=== PATIENT | female | born 1990 | race Caucasian/White ===

== ENCOUNTER 2016-10-08 17:33 | Emergency (ER) | payer OTHER ==
--- NOTE | 2016-10-08 18:06 | Emergency Department Record ---
History of Present Illness - General Chief complaint: Abscess Stated complaint: INFECTED PIECING IN EAR Time Seen by Provider: 10/08/16 17:53 Source: Patient Mode of Arrival: Ambulatory Limitations: No limitations - History of Present Illness Initial comments: pt has an infected piercing of her l ear in the cartilage. she is diabetic and complaint: Abscess/boil Onset/Timin -: Days(s) Location: Head Severity scale (1-10): 7 Quality: Aching Consistency: Constant Improves with: None Worsens with: Palpation Context: None Associated symptoms: Denies other symptoms Treatments Prior to Arrival: None - Related Data Home Medications Medication Instructions Recorded Confirmed Last Taken Insulin Detemir [Levemir] 10 units SQ QHS 10/08/16 10/08/16 10/07/16 Pnv No.95/Ferrous Fum/Folic AC 1 tab PO DAILY 10/08/16 10/08/16 10/08/16 [ Multivitamin Tablet] Previous Rx's Medication Instructions Recorded Cephalexin [Keflex] 500 mg PO QID #30 cap 10/08/16 Allergies Allergy/AdvReac Type Severity Reaction Status Date / Time topiramate [From Topamax] Allergy HIVES Verified 10/08/16 17:38 Penicillins AdvReac RASH Verified 06/11/14 14:37 Travel Screening - Travel/Exposure Within Last 30 Days Have you traveled within the last 30 days?: No - Travel/Exposure Within Last Year Have you traveled outside the [place] in the last year?: No - Additonal Travel Details Have you been exposed to anyone with a communicable illness?: No - Travel Symptoms Symptom Screening: None Review of Systems Reviewed: No additional complaints except as noted below Constitutional: Reports: As per HPI. Denies: Chills, Fever, Malaise, Night sweats, Weakness, Weight change Eyes: Reports: As per HPI. Denies: Eye discharge, Eye pain, Photophobia, Vision change ENT: Reports: As per HPI. Denies: Congestion, Dental pain, Ear pain, Epistaxis , Hearing loss, Throat pain Respiratory: Reports: As per HPI. Denies: Cough, Dyspnea, Hemoptysis, Stridor, Wheezes Cardiovascular: Reports: As per HPI. Denies: Arrhythmia, Chest pain, Dyspnea on exertion, Edema, Murmurs, Orthopnea, Palpitations, Paroxysmal nocturnal dyspnea, Rheumatic Fever, Syncope Endocrine: Reports: As per HPI. Denies: Fatigue, Heat or cold intolerance, Polydipsia, Polyuria Gastrointestinal: Reports: As per HPI. Denies: Abdominal pain, Constipation, Diarrhea, Hematemesis, Hematochezia, Melena, Nausea, Vomiting Genitourinary: Reports: As per HPI. Denies: Abnormal menses, Discharge, Dyspareunia, Dysuria, Frequency, Hematuria, Incontinence, Retention, Urgency Musculoskeletal: Reports: As per HPI. Denies: Arthralgia, Back pain, Gout, Joint swelling, Myalgia, Neck pain Skin: Reports: As per HPI. Denies: Bruising, Change in color, Change in hair/ nails, Lesions, Pruritus, Rash Neurological: Reports: As per HPI. Denies: Abnormal gait, Confusion, Headache, Numbness, Paresthesias, Seizure, Tingling, Tremors, Vertigo, Weakness Psychiatric: Reports: As per HPI. Denies: Anxiety, Auditory hallucinations, Depression, Homicidal thoughts, Suicidal thoughts, Visual hallucinations Hematological/Lymphatic: Reports: As per HPI. Denies: Anemia, Blood Clots, Easy bleeding, Easy bruising, Swollen glands Past Medical History - SOCIAL HISTORY Smoking Status: Former smoker Alcohol Use: None Drug Use Detail:: Cocaine - RESPIRATORY Hx Respiratory Disorders: No - CARDIOVASCULAR Hx Cardio Disorders: No - NEURO Hx Neuro Disorders: Yes Hx Headaches: Yes - GI Hx GI Disorders: No - Hx Genitourinary Disorders: No - ENDOCRINE Hx Diabetes: Yes Hx Thyroid Disease: No - MUSCULOSKELETAL Hx Musculoskeletal Disorders: No - PSYCH Hx Psych Problems: Yes Hx Anxiety: Yes Hx Depression: Yes - HEMATOLOGY/ONCOLOGY Hx Hematology/Oncology Disorders: No Family Medical History Any Significant Family History?: Yes Hx Cancer: Grandparents Hx Diabetes: Grandparents Hx Heart Disease: Grandparents Hx Stroke: Grandparents Physical Exam - General General Appearance: Alert, Oriented x3, Cooperative, Mild distress - Head Head exam: Normal inspection - Eye Eye exam: Normal appearance, PERRL, EOMI Pupils: Normal accommodation - ENT ENT exam: Normal exam, Mucous membranes moist, Normal external ear exam, Normal orophraynx Ear exam: External canal tenderness, Other (mild infected piercing of cartilage) Nasal Exam: Normal inspection. negative: Discharge, Sinus tenderness Mouth exam: Normal external inspection, Tongue normal Teeth exam: Normal inspection. negative: Dental caries Throat exam: Normal inspection. negative: Tonsillar erythema, Tonsillar exudate - Neck Neck exam: Normal inspection, Full ROM. negative: Tenderness - Respiratory Respiratory exam: Normal lung sounds bilaterally. negative: Respiratory distress - Cardiovascular Cardiovascular Exam: Regular rate, Normal rhythm, Normal heart sounds - GI/Abdominal GI/Abdominal exam: Soft, Normal bowel sounds. negative: Tenderness - Rectal Rectal exam: Deferred - exam: Deferred - Extremities Extremities exam: Normal inspection, Full ROM, Normal capillary refill. negative: Tenderness - Back Back exam: Reports: Normal inspection, Full ROM. Denies: Muscle spasm, Rash noted, Tenderness - Neurological Neurological exam: Alert, CN II-XII intact, Normal gait, Oriented X3 - Psychiatric Psychiatric exam: Normal affect, Normal mood - Skin Skin exam: Dry, Intact, Normal color, Warm Course Vital Signs 10/08/16 17:40 Temperature 98.6 F Pulse Rate 93 H Respiratory 20 Rate Blood Pressure 115/73 Pulse Ox 98 Disposition Disposition: Discharge Clinical Impression: Infected pierced ear Qualifiers: Encounter type: initial encounter Laterality: left Qualified Code(s): S01.332A - Puncture wound without foreign body of left ear, initial encounter Disposition: Home, Self-Care Condition: (1) Good Instructions: Wound Infection (ED) Additional Instructions: follow up with family doctor. return sooner if worse. moist heat 4 times a day Prescriptions: Cephalexin [Keflex] 500 mg PO QID #30 cap Forms: Patient Portal Access Quality - Quality Measures Quality Measures: N/A - Blood Pressure Screening Blood Pressure Classification: Normal BP Reading Systolic Measurement: 115 Diastolic Measurement: 73 Screening for High Blood Pressure: < Normal BP, F/U Not Required > [G8783] Normal BP Follow-up Interventions: No follow-up required
== END 2016-10-08 18:20 | disposition home or self-care (01) ==
LOC: ER 17:33
DX: S00.402A Unspecified superficial injury of left ear, initial encounter (principal); L08.9 Local infection of the skin and subcutaneous tissue, unspecified
CPT/HCPCS: 99282

== ENCOUNTER 2017-04-23 18:24 | Emergency (ER) | payer OTHER, MEDICAID ==
--- NOTE | 2017-04-23 19:30 | Emergency Department Record ---
History of Present Illness - General Chief Complaint: General Stated Complaint: THRUSH ON BREAST Time Seen by Provider: 04/23/17 19:26 Source: Patient Mode of Arrival: Ambulatory Limitations: No limitations - History of Present Illness Initial comments: The patient has been breast feeding her 16 day old baby and he has developed thrush. Now she is having some burning of her nipples and is concerned she may have thrush also. She denies any swelling, redness or pain. Onset/Timin -: Days(s) - [place] Coma Scale Eye Response: (4) Open spontaneously Motor Response: (6) Obeys commands Verbal Response: (5) Oriented Waqar Total: 15 - Related Data Previous Rx's Medication Instructions Recorded Cephalexin [Keflex] 500 mg PO QID #30 cap 10/08/16 Allergies Allergy/AdvReac Type Severity Reaction Status Date / Time topiramate [From Topamax] Allergy HIVES Verified 10/08/16 17:38 Penicillins AdvReac RASH Verified 06/11/14 14:37 Travel Screening - Travel/Exposure Within Last 30 Days Have you traveled within the last 30 days?: No - Travel/Exposure Within Last Year Have you traveled outside the [place] in the last year?: No - Additonal Travel Details Have you been exposed to anyone with a communicable illness?: No - Travel Symptoms Symptom Screening: None Review of Systems Constitutional: Denies: Chills, Fever Eyes: Denies: Eye discharge ENT: Denies: Congestion Respiratory: Denies: Cough, Dyspnea Past Medical History - SOCIAL HISTORY Smoking Status: Former smoker Alcohol Use: None Drug Use: None - RESPIRATORY Hx Respiratory Disorders: No - CARDIOVASCULAR Hx Cardio Disorders: No - NEURO Hx Neuro Disorders: Yes Hx Headaches: Yes - GI Hx GI Disorders: No - Hx Genitourinary Disorders: No - ENDOCRINE Hx Diabetes: Yes Hx Thyroid Disease: No - MUSCULOSKELETAL Hx Musculoskeletal Disorders: No - PSYCH Hx Psych Problems: Yes Hx Anxiety: Yes Hx Depression: Yes - HEMATOLOGY/ONCOLOGY Hx Hematology/Oncology Disorders: No Family Medical History Any Significant Family History?: No Hx Cancer: Grandparents Hx Diabetes: Grandparents Hx Heart Disease: Grandparents Hx Stroke: Grandparents Physical Exam - General General Appearance: Alert, Cooperative, No acute distress - Head Head exam: Atraumatic, Normocephalic - Eye Eye exam: Normal appearance, PERRL - Neck Neck exam: Normal inspection - Skin Skin exam: Normal color (The breast and nipples were examined and appear very normal. There is no tenderness, swelling, or erythema. There are no signs of any fungal infection.) Course Vital Signs 04/23/17 19:14 Temperature 98.6 F Pulse Rate 85 Respiratory 18 Rate Blood Pressure 123/84 Pulse Ox 96 - Reevaluation(s) Reevaluation #1: I explained to Mom that she is to wash her nipples very well and we will treat her baby with nystatin. She is to return for any problems. 04/23/17 19:29 Disposition Disposition: Discharge Clinical Impression: Breast pain in female Disposition: Home, Self-Care Condition: (1) Good Instructions: and Nipple Soreness (ED) Additional Instructions: Please wash the nipples as directed and see your PCP next week if not better. Forms: Patient Portal Access Time of Disposition: 19:30 Quality - Quality Measures Quality Measures: N/A - Blood Pressure Screening View Details: Yes Does Patient Have Any of the Following: No Blood Pressure Classification: Pre-Hypertensive BP Reading Systolic Measurement: 123 Diastolic Measurement: 84 Screening for High Blood Pressure: < Pre-Hypertensive BP, F/U Documented > [ G8950] Pre-Hypertensive Follow-up Interventions: Referral to alternative/primary care provider.
== END 2017-04-23 19:45 | disposition home or self-care (01) ==
LOC: ER 18:24
DX: O92.29 Other disorders of breast associated with pregnancy and the puerperium (principal)
CPT/HCPCS: 99282

== ENCOUNTER 2017-07-19 02:35 | Day surgery (SDC) | payer MEDICAID, OTHER ==
[2017-07-19] MEDS ORDERED: FAMOTIDINE 20MG TABLET PO ONE (02:36)
[2017-07-19] MEDS ORDERED: METOCLOPRAMIDE 10 MG TABLET PO ONE (02:36)
[2017-07-19] MEDS ORDERED: MECLIZINE 25 MG TABLET PO ONE (02:36)
[2017-07-19] MEDS ORDERED: ACETAMINOPHEN 1,000 MG/100 ML BTL IV ONE (02:36)
[2017-07-19] MEDS ORDERED: HYDROMORPHONE HCL 2 MG/ML VIAL IVP ONE (02:45)
[2017-07-19] MEDS ORDERED: ONDANSETRON HCL IV 4 MG/2 ML VIAL IV ONE (02:45)
[2017-07-19] MEDS ORDERED: SODIUM CHLORIDE 0.9% 500 ML IV ONE (02:45)
--- NOTE | 2017-07-19 02:49 | Emergency Department Record ---
History of Present Illness - General Chief Complaint: Abdominal Pain Stated Complaint: ABDOMINAL PAIN Time Seen by Provider: 07/19/17 02:41 Source: Patient Mode of Arrival: Ambulatory Limitations: No limitations - History of Present Illness Initial Comments: The patient is here due to epigastric AP for the last 2.5 hours. The pain is sharp and stabbing and is associated with nausea and vomiting. The patient denies any diarrhea, fever, chills, or back pain. She has had similar pain recently off and on but it has resolved. This episode seems worse. The patient did have a baby 3 months ago and denies any hx of any abdominal surgeries. MD Complaint: Abdominal pain Onset/Timin -: Hour(s) Location: Epigastric Radiation: None, Back Severity scale (1-10): 8 Consistency: Constant Improves With: Nothing Worsens With: Nothing Associated Symptoms: Vomiting - Related Data LMP Date: 06/20/16 Allergies Allergy/AdvReac Type Severity Reaction Status Date / Time topiramate [From Topamax] Allergy HIVES Verified 10/08/16 17:38 Penicillins AdvReac RASH Verified 06/11/14 14:37 Travel Screening - Travel/Exposure Within Last 30 Days Have you traveled within the last 30 days?: No - Travel/Exposure Within Last Year Have you traveled outside the [place] in the last year?: No - Additonal Travel Details Have you been exposed to anyone with a communicable illness?: No Review of Systems Constitutional: Denies: Chills, Fever Eyes: Denies: Eye discharge ENT: Denies: Congestion Respiratory: Denies: Cough, Dyspnea Past Medical History - SOCIAL HISTORY Smoking Status: Former smoker Alcohol Use: None Drug Use: None - RESPIRATORY Hx Respiratory Disorders: No - CARDIOVASCULAR Hx Cardio Disorders: No - NEURO Hx Neuro Disorders: Yes Hx Headaches: Yes - GI Hx GI Disorders: No - Hx Genitourinary Disorders: No - ENDOCRINE Hx Diabetes: Yes Hx Thyroid Disease: No - MUSCULOSKELETAL Hx Musculoskeletal Disorders: No - PSYCH Hx Psych Problems: Yes Hx Anxiety: Yes Hx Depression: Yes - HEMATOLOGY/ONCOLOGY Hx Hematology/Oncology Disorders: No Family Medical History Any Significant Family History?: No Hx Cancer: Grandparents Hx Diabetes: Grandparents Hx Heart Disease: Grandparents Hx Stroke: Grandparents Physical Exam - General General Appearance: Alert, Oriented x3, Cooperative, No acute distress - Head Head exam: Atraumatic, Normocephalic, Normal inspection - Eye Eye exam: Normal appearance, PERRL - Neck Neck exam: Normal inspection, Full ROM. negative: Tenderness - Respiratory Respiratory exam: Normal lung sounds bilaterally. negative: Respiratory distress - Cardiovascular Cardiovascular Exam: Regular rate, Normal rhythm, Normal heart sounds - GI/Abdominal GI/Abdominal exam: Soft, Tenderness (There is mild to moderate epigastric > RUQ tenderness.). negative: Guarding, Rebound, Rigid - Extremities Extremities exam: Normal inspection, Full ROM, Normal capillary refill. negative: Tenderness Course Vital Signs 07/19/17 02:36 Temperature 98.8 F Pulse Rate 89 Respiratory 20 Rate Blood Pressure 133/85 Pulse Ox 99 - Reevaluation(s) Reevaluation #1: The patient is doing better at this time. Her pain has resolved 100%. I did discuss the need for an US due to the fact I believe the pain is most likely from her GB. The patient is willing to stay in the ED until 7am for the US. 07/19/17 03:26 Reevaluation #2: The patient is doing much better at this time. She presently was sleeping when I rechecked her. She states the pain is gone but there is mild epigastric tenderness. The abdomen is very soft at this time. 07/19/17 04:15 Reevaluation #3: The patient is resting comfortably and is presently sleeping. We are waiting on the US. The patient's care will be turned over to Dr. Key at 7am due to shift change. 07/19/17 06:39 Medical Decision Making - Data Complexity MDM Data: Labs Ordered and/or Reviewed - Lab Data Result diagrams: 07/19/17 02:45 07/19/17 02:45 Disposition Forms: Patient Portal Access Quality - Quality Measures Quality Measures: N/A - Blood Pressure Screening View Details: Yes Does Patient Have Any of the Following: No Blood Pressure Classification: Pre-Hypertensive BP Reading Systolic Measurement: 133 Diastolic Measurement: 85 Screening for High Blood Pressure: < Pre-Hypertensive BP, F/U Documented > [ G8950] Pre-Hypertensive Follow-up Interventions: Referral to alternative/primary care provider.
[2017-07-19 02:53] LABS: BASO % 0.5 % (0-6); EOS % 1.6 % (0-6); GRAN % 60.4 % (47-80); HEMOGLOBIN 13.6 gm/dl (11.6-16.0); LYMPH % 28.3 % (16-45); MEAN CORPUSCULAR HEMOGLOBIN 28.5 pg (27-33); MEAN CORPUSCULAR HGB CONC 33.2 g/dl (32-36); MEAN PLATELET VOLUME 10.3 fl (7.4-10.4); MONO % 9.2 % (0-9); PLATELET COUNT 204 K/uL (130-400); RED BLOOD COUNT 4.77 M/uL (3.80-5.40); RED CELL DISTRIBUTION WIDTH 12.7 % (11.5-14.5); WHITE BLOOD COUNT W/O DIFF 7.7 K/uL (4.2-12.2)
[2017-07-19 02:56] LABS: URINE APPEARANCE CLEAR; URINE BILIRUBIN NEGATIVE (NEGATIVE); URINE BLOOD SMALL (NEGATIVE); URINE COLOR YELLOW; URINE GLUCOSE (UA) NEGATIVE (NEGATIVE); URINE KETONE NEGATIVE (NEGATIVE); URINE LEUKOCYTE ESTERASE NEGATIVE (NEGATIVE); URINE NITRITE NEGATIVE (NEGATIVE); URINE PROTEIN NEGATIVE (NEGATIVE); URINE UROBILINOGEN 0.2 E.U./dL (0.20 - 1.00)
[2017-07-19 02:58] LABS: HCG,QUALITATIVE URINE NEGATIVE (NEGATIVE); URINE BACTERIA NONE SEEN; URINE EPITHELIAL CELLS 0 - 2 (FEW); URINE RBC 0 - 2 (NONE SEEN); URINE WBC 0 - 2 (0-2/hpf)
[2017-07-19 03:11] LABS: BLOOD UREA NITROGEN 17 mg/dL (6-20); CREATININE 0.7 mg/dL (0.5-0.9); EST GLOMERULAR FILTRATION RATE > 60 mL/min
[2017-07-19 03:14] LABS: GLUCOSE,RANDOM 141 mg/dL (74-109)
[2017-07-19 03:16] LABS: ALBUMIN 3.7 g/dL (4.0-5.0); ALKALINE PHOSPHATASE 83 U/L (35-104); ALT/SGPT 20 U/L (<33); AST/SGOT 18 U/L (10.0-35.0)
[2017-07-19 03:17] LABS: BILIRUBIN,DIRECT < 0.2 mg/dL (0-0.3); LIPASE 40 U/L (13-60)
[2017-07-19] MEDS ORDERED: 0.9 % SODIUM CHLORIDE 1000ML 1,000 ML IV ONE (08:14)
--- NOTE | 2017-07-19 08:20 | Emergency Department Record ---
History of Present Illness - General Chief Complaint: Abdominal Pain Stated Complaint: ABDOMINAL PAIN Time Seen by Provider: 07/19/17 02:41 Source: Patient Mode of Arrival: Ambulatory Limitations: No limitations - History of Present Illness MD Complaint: Abdominal pain Onset/Timin -: Hour(s) Location: Epigastric Radiation: None, Back Severity scale (1-10): 8 Consistency: Constant Improves With: Nothing Worsens With: Nothing Associated Symptoms: Vomiting - Related Data LMP Date: 06/20/16 Patient : No Allergies Allergy/AdvReac Type Severity Reaction Status Date / Time topiramate [From Topamax] Allergy HIVES Verified 10/08/16 17:38 Penicillins AdvReac RASH Verified 06/11/14 14:37 Travel Screening - Travel/Exposure Within Last 30 Days Have you traveled within the last 30 days?: No - Travel/Exposure Within Last Year Have you traveled outside the [place] in the last year?: No - Additonal Travel Details Have you been exposed to anyone with a communicable illness?: No Review of Systems Constitutional: Denies: Chills, Fever Eyes: Denies: Eye discharge ENT: Denies: Congestion Respiratory: Denies: Cough, Dyspnea Past Medical History - SOCIAL HISTORY Smoking Status: Former smoker Alcohol Use: None Drug Use: None - RESPIRATORY Hx Respiratory Disorders: No - CARDIOVASCULAR Hx Cardio Disorders: No - NEURO Hx Neuro Disorders: Yes Hx Headaches: Yes - GI Hx GI Disorders: No - Hx Genitourinary Disorders: No - ENDOCRINE Hx Diabetes: Yes Hx Thyroid Disease: No - MUSCULOSKELETAL Hx Musculoskeletal Disorders: No - PSYCH Hx Psych Problems: Yes Hx Anxiety: Yes Hx Depression: Yes - HEMATOLOGY/ONCOLOGY Hx Hematology/Oncology Disorders: No Family Medical History Any Significant Family History?: No Hx Cancer: Grandparents Hx Diabetes: Grandparents Hx Heart Disease: Grandparents Hx Stroke: Grandparents Physical Exam - General Limitations: No limitations Course Vital Signs 07/19/17 07/19/17 07/19/17 02:36 03:16 07:57 Temperature 98.8 F 97.8 F Pulse Rate 89 Pulse Rate [ 83 69 Pulse Ox Probe] Respiratory 20 20 18 Rate Blood Pressure 133/85 Blood Pressure 146/90 [Left Arm] Blood Pressure 124/92 [Right Arm] Pulse Ox 99 97 98 - Reevaluation(s) Reevaluation #1: The case was turned over by Dr Padilla 07/19/17 07:00 The US was reviewed The patient has multiple mobile stones. No wall thickening or pericholecystic fluid. 07/19/17 08:10 07/19/17 08:34 I JONH Perkins The patient still has pain and prefers to have the GB out if possible given repeated episodes of pain The patient will have outpatient surgery today Medical Decision Making - Lab Data Result diagrams: 07/19/17 02:45 07/19/17 02:45 Lab Results 07/19/17 07/19/17 07/19/17 Range/Units 02:45 02:45 02:57 WBC 7.7 (4.2-12.2) K/uL RBC 4.77 (3.80-5.40) M/uL Hgb 13.6 (11.6-16.0) gm/dl Hct 41.0 (35.0-47.0) % MCV 86.0 (81-97) fl MCH 28.5 (27-33) pg MCHC 33.2 (32-36) g/dl RDW 12.7 (11.5-14.5) % Plt Count 204 (130-400) K/uL MPV 10.3 (7.4-10.4) fl Gran % 60.4 (47-80) % Lymphocytes % 28.3 (16-45) % Monocytes % 9.2 H (0-9) % Eosinophils % 1.6 (0-6) % Basophils % 0.5 (0-6) % Sodium 136 (136-145) mmol/L Potassium 4.0 (3.4-4.5) mmol/L Chloride 100 (98-107) mmol/L Carbon Dioxide 28.0 (22-29) mmol/L Anion Gap 8.0 (7-16) BUN 17 (6-20) mg/dL Creatinine 0.7 (0.5-0.9) mg/dL Estimated GFR > 60 mL/min Random Glucose 141 H (74-109) mg/dL Calcium 9.2 (8.6-10.0) mg/dL Total Bilirubin 0.50 (0.2-1.0) mg/dL Direct Bilirubin < 0.2 (0-0.3) mg/dL AST 18 (10.0-35.0) U/L ALT 20 (<33) U/L Alkaline Phosphatase 83 (35-104) U/L Total Protein 7.0 (6.6-8.7) g/dL Albumin 3.7 L (4.0-5.0) g/dL Lipase 40 (13-60) U/L Urine Color Yellow Urine Appearance Clear Urine pH 7.0 (5.0-8.0) Ur Specific Erhard 1.015 (1.002-1.030) Urine Protein Negative (NEGATIVE) Urine Glucose (UA) Negative (NEGATIVE) Urine Ketones Negative (NEGATIVE) Urine Blood Small H (NEGATIVE) Urine Nitrite Negative (NEGATIVE) Urine Bilirubin Negative (NEGATIVE) Urine Urobilinogen 0.2 (0.20 - 1.00) E.U./dL Ur Leukocyte Esterase Negative (NEGATIVE) Urine RBC 0 - 2 (NONE SEEN) Urine WBC 0 - 2 (0-2/hpf) Ur Epithelial Cells 0 - 2 (FEW) Urine Bacteria None seen Urine HCG, Qual Negative (NEGATIVE) Disposition Disposition: Discharge Clinical Impression: Biliary colic Disposition: Home, Self-Care Condition: (2) Stable Additional Instructions: Discharged to outpatient surgery Forms: Patient Portal Access Time of Disposition: 08:36 Quality - Quality Measures Quality Measures: N/A - Blood Pressure Screening Does Patient Have Any of the Following: No Blood Pressure Classification: Pre-Hypertensive BP Reading Systolic Measurement: 133 Diastolic Measurement: 85 Screening for High Blood Pressure: < Pre-Hypertensive BP, F/U Documented > [ G8950] Pre-Hypertensive Follow-up Interventions: Referral to alternative/primary care provider.
[2017-07-19] MEDS ORDERED: ONDANSETRON HCL IV 4 MG/2 ML VIAL IVP ONE (13:50)
[2017-07-19] MEDS ORDERED: LIDOCAINE 2% MDV (20MG/ML) 20ML VIAL IV ONE (13:50)
[2017-07-19] MEDS ORDERED: PROPOFOL 10 MG/ML VIAL IV ONE (13:50)
[2017-07-19] MEDS ORDERED: HYDROMORPHONE HCL 2 MG/ML VIAL IV ONE ×2 (13:50)
[2017-07-19] MEDS ORDERED: SEVOFLURANE 250 ML INH ONE (13:50)
[2017-07-19] MEDS ORDERED: METOCLOPRAMIDE HCL 10 MG/2 ML VIAL IVP ONE (13:50)
[2017-07-19] MEDS ORDERED: FENTANYL PF 100MCG/2ML VIAL IV ONE (13:50)
[2017-07-19] MEDS ORDERED: SUCCINYLCHOLINE 20 MG/ML 10ML IVP ONE (13:50)
[2017-07-19] MEDS ORDERED: MIDAZOLAM HCL 2MG/2ML VIAL IV ONE (13:50)
[2017-07-19] MEDS ORDERED: BUPIVACAINE 0.25% W/EPI MPF 30ML VIAL IVP ONE (13:50)
[2017-07-19] MEDS ORDERED: ROCURONIUM BROMIDE 50MG/5ML VIAL IV ONE (13:50)
--- NOTE | 2017-07-19 16:04 | ULTRASOUND REPORT ---
EXAM: ULTRASOUND ABDOMEN, COMPLETE HISTORY: MID ABDOMINAL PAIN. TECHNIQUE: Complete transabdominal ultrasound. COMPARISON: None. FINDINGS: Echogenic appearance to the liver consistent with fatty infiltrative change. No focal liver lesions. Multiple mobile, shadowing stones in the gallbladder lumen. No gallbladder wall thickening or pericholecystic fluid. The CBD measures 1.8 mm. The visualized portions of the pancreas are unremarkable. The spleen is unremarkable at 12 cm. The right kidney measures 11 x 4 cm, the left 12 x 6 cm. No renal calculus, mass, or hydronephrosis. Visualized portions of the abdominal aorta and inferior vena cava are unremarkable. No free fluid. Negative sonographic Lilly sign. IMPRESSION: FATTY INFILTRATIVE CHANGE TO THE LIVER. CHOLELITHIASIS. NO SONOGRAPHIC EVIDENCE FOR CHOLECYSTITIS. JOB NUMBER: [id number] [facility]
--- NOTE | 2017-07-20 10:10 | Operative Note ---
DATE OF SURGERY: 07/19/2017 Surgeon: Xander Perkins DO PREOPERATIVE DIAGNOSIS: Acute cholecystitis. POSTOPERATIVE DIAGNOSIS: Acute cholecystitis. OPERATION: Laparoscopic cholecystectomy. Indication: The patient is a 27-year-old female who has had ongoing right subcostal postprandial pain. Imaging studies did reveal cholelithiasis. We did discuss cholecystectomy versus medical management. She desired surgical intervention. Risks include but are not limited to bleeding, infection, acute or chronic pain, bile duct injury, bile leak. She understood this fully. The patient is morbidly obese at 330 pounds. Therefore, this did add some technical issues to it, which we discussed as well. Thereafter, consent was signed and questions answered. PROCEDURE: She was taken to the operating room and placed in a supine position. General anesthesia was administered per the department of anesthesia. The patient's abdomen was prepped and draped in the usual sterile fashion. At this time, adequate timeout was performed. She did receive preoperative antibiotic as well as DVT prophylaxis. The supraumbilical region was anesthetized with a total of 4 mL of 0.25% Sensorcaine with epinephrine. A 2.5 cm supraumbilical incision was made. This was carried down to the anterior rectus fascia. This was incised. Nithya clamps were placed on the fascial edges and brought up into the wound. Stay sutures of 0 Vicryl were placed. Posterior rectus sheath was identified and incised. The peritoneal cavity was entered bluntly. At this time, a bariatric balloon Lilibeth port was then placed. Adequate pneumoperitoneum was established. Under direct visualization, additional 5 mm epigastric and two 5 mm right subcostal ports were placed. The patient was rotated into reverse Trendelenburg, rotation to left. The gallbladder was identified and noted to be very edematous and inflamed. This was lifted in cephalad and lateral direction over the angle of Calot. The hepatocystic triangle was thoroughly dissected out. There was no aberrant anatomy, no posterior ductal structures. The cystic duct and cystic artery were clearly identified. Each one was dissected out. Each one was doubly clipped and cut in a standard fashion. Gallbladder was then peeled off the liver bed mainly with blunt dissection. This was placed in an EndoCatch bag and brought out the umbilical port. Right upper quadrant was rechecked and found to be hemostatic. No bleeding. No bile leak. No bowel injury noted. The patient was leveled out. The pneumoperitoneum was released. All ports were removed. The fascia was closed with 0 Vicryl in a [id number] fashion. The skin at all ports was closed with 4-0 Vicryl. The patient was taken to the recovery room in satisfactory condition. FINDINGS AT THE TIME OF SURGERY: Acute on chronic cholecystitis. MTDD
== END 2017-07-19 15:45 | disposition home or self-care (01) ==
LOC: ER 02:35 → EDSTATUS 07:08 → ER 12:28 → SUR 13:49 → ER 15:45 → SUR 15:45
PROVIDERS: ATTEND Specialist
DX: K81.0 Acute cholecystitis (principal); E11.9 Type 2 diabetes mellitus without complications; Z87.891 Personal history of nicotine dependence
CPT/HCPCS: 47562; 00790; 99285 ×2; 96374; 96375; 96361; 83690; 85025; 80076; 80048; 81001; 81025; 76700; J2405; J3010; J1170; J0330; J2765; J7030

== ENCOUNTER 2017-07-24 20:53 | Emergency (ER) | payer MEDICAID ==
--- NOTE | 2017-07-24 21:07 | Emergency Department Record ---
History of Present Illness - General Chief Complaint: Wound, check Stated Complaint: POST OP BLEEDING Time Seen by Provider: 07/24/17 20:56 Source: Patient Mode of arrival: Ambulatory Limitations: No limitations - History of Present Illness Initial Comments: 27 yo female presents with a concern that her umbilical incision from a recent lap jhonatan opened yesterday in the afternoon. Dr Perkins is her surgeon. She had some initial bleeding that stopped yesterday. NO redness or pus. NO fevers. She has returned to normal appetite. No concerns after surgery until the incision opened. MD Complaint: Wound re-check Initial Visit For: Other Returns Today for: Wound recheck Symptoms Since Prior Visit: Other Associated Symptoms: None - Related Data Allergies Allergy/AdvReac Type Severity Reaction Status Date / Time topiramate [From Topamax] Allergy HIVES Verified 10/08/16 17:38 Penicillins AdvReac RASH Verified 06/11/14 14:37 Review of Systems Constitutional: Denies: Chills, Fever Eyes: Denies: Eye discharge ENT: Denies: Congestion, Throat pain Respiratory: Denies: Cough Cardiovascular: Denies: Chest pain, Syncope Endocrine: Denies: Fatigue Gastrointestinal: Denies: Abdominal pain, Diarrhea, Nausea, Vomiting Genitourinary: Denies: Dysuria Musculoskeletal: Denies: Arthralgia, Back pain, Joint swelling, Myalgia Skin: Denies: Bruising, Change in color, Rash, Other Neurological: Denies: Confusion, Headache, Numbness, Weakness Psychiatric: Denies: Anxiety Hematological/Lymphatic: Denies: Blood Clots, Easy bleeding, Easy bruising Past Medical History - SOCIAL HISTORY Smoking Status: Former smoker - RESPIRATORY Hx Respiratory Disorders: No - CARDIOVASCULAR Hx Cardio Disorders: No - NEURO Hx Neuro Disorders: Yes Hx Headaches: Yes Hx of Migraines: Yes (2 days a week) - GI Hx GI Disorders: No - Hx Genitourinary Disorders: No - ENDOCRINE Hx Diabetes: Yes - MUSCULOSKELETAL Hx Musculoskeletal Disorders: No - PSYCH Hx Psych Problems: Yes Hx Anxiety: Yes Hx Depression: Yes - HEMATOLOGY/ONCOLOGY Hx Hematology/Oncology Disorders: No Family Medical History Hx Cancer: Grandparents Hx Diabetes: Grandparents Hx Heart Disease: Grandparents Hx Stroke: Grandparents Physical Exam - General General Appearance: Alert, Oriented x3, Cooperative, No acute distress Limitations: No limitations - Head Head exam: Normal inspection - Eye Eye exam: Normal appearance, PERRL - ENT ENT exam: Normal exam Ear exam: Normal external inspection Nasal Exam: Normal inspection Mouth exam: Normal external inspection Teeth exam: Normal inspection - Neck Neck exam: Normal inspection, Full ROM. negative: Tenderness - Respiratory Respiratory exam: Normal lung sounds bilaterally. negative: Respiratory distress - Cardiovascular Cardiovascular Exam: Regular rate, Normal rhythm, Normal heart sounds - GI/Abdominal GI/Abdominal exam: Soft, Other (open umbilical incision site, no warmth or redness, no pus, no signs of infection). negative: Distended, Guarding, Rebound , Rigid, Tenderness - Rectal Rectal exam: Deferred - exam: Deferred - Extremities Extremities exam: Normal inspection - Neurological Neurological exam: Alert, Normal gait, Oriented X3 - Psychiatric Psychiatric exam: Normal affect, Normal mood Course - Reevaluation(s) Reevaluation #1: 07/24/17 21:08 I JONH Perkins We discussed the patient presentation He recommended placing suture at this time He will follow up in the office as scheduled He did not recommend antibiotics unless any signs of infection develop 07/24/17 21:27 Procedure incision closure 3cm Betadine prep copious NS irrigation Ethilon Suture 3-0 5 sutures placed with good results and tolerated well SteriStrips Placed as well for support We discussed home care and reasons for immediate follow up Disposition Disposition: Discharge Clinical Impression: Wound dehiscence Disposition: Home, Self-Care Condition: (1) Good Instructions: Wound Dehiscence (ED) Additional Instructions: Call Dr Perkins immediately if you have any concerns with the healing of the incision Return or be seen immediately if the wound is warm, red, opens or any new concerns. Forms: Patient Portal Access Time of Disposition: 21:30 Quality - Quality Measures Quality Measures: N/A - Blood Pressure Screening Does Patient Have Any of the Following: No Blood Pressure Classification: Pre-Hypertensive BP Reading Systolic Measurement: 146 Diastolic Measurement: 83 Screening for High Blood Pressure: < Pre-Hypertensive BP, F/U Documented > [ [id number]] Pre-Hypertensive Follow-up Interventions: Referral to alternative/primary care provider.
== END 2017-07-24 21:43 | disposition home or self-care (01) ==
LOC: ER 20:53
DX: T81.31XA Disruption of external operation (surgical) wound, not elsewhere classified, initial encounter (principal); E11.9 Type 2 diabetes mellitus without complications; Z87.891 Personal history of nicotine dependence
CPT/HCPCS: 12001; 99283; 99284